=== PATIENT | male | born 1990 | race Two or more races ===

== ENCOUNTER 2025-02-07 07:35 | Day surgery (SDC) | payer MEDICAID, SELFPAY ==
[2025-02-02 12:11] VITALS: BMI 30.5
[2025-02-02 12:38] LABS: Collection Type, Urine Clean Catch; Squamous Epithelial Cell,Urine 0 /hpf (0-5)
[2025-02-02 13:24] LABS: Basophils # (Auto) 0.0 Thou/mm3 (0.0-0.2); Basophils % (Auto) 0 % (0-2.5); Eosinophils # (Auto) 0.1 Thou/mm3 (0.0-0.5); Eosinophils % (Auto) 1 % (0-10); Hematocrit 41.4 % (41.0-53.0); Hemoglobin 14.5 g/dL (13.5-16.0); Immature Granulocytes Auto 0.03 Thou/mm3 (0.00-0.00); Lymphocytes # (Auto) 3.6 Thou/mm3 (1.0-4.8); Lymphocytes % (Auto) 52 % (10-50); Mean Corpuscular HGB Conc 35.0 g/dl (31.0-37.0); Mean Corpuscular Hemoglobin 29.4 pg (25.0-35.0); Mean Corpuscular Volume 84 fL (80-100); Monocytes # (Auto) 0.7 Thou/mm3 (0.0-0.8); Monocytes % (Auto) 10 % (0-12); Neutrophils # (Auto) 2.6 Thou/mm3 (1.8-7.7); Neutrophils % (Auto) 37 % (37-80); Nucleated Red Blood Cell # 0.00 Thou/mm3 (0.00-0.00); Nucleated Red Blood Cell % 0 /100 WBC (0); Platelet Count 180 Thou/mm3 (140-440); RDW Standard Deviation 42.7 fL (35.1-43.9); Red Blood Count 4.93 Miln/mm3 (4.50-5.90); White Blood Count 7.1 Thou/mm3 (3.8-10.6)
[2025-02-02 13:27] LABS: Bacteria,Urine Rare; Bilirubin,Urine Negative (Negative); Blood,Urine Negative (Negative); Clarity,Urine Clear (Clear/Hazy); Color,Urine Lt-Yellow (Lt Yel-Yel); Glucose, Urine Negative (Negative); Ketones,Urine Negative (Negative); Leukocyte Esterase,Urine Negative (Negative); Nitrite,Urine Negative (Negative); PH,Urine 5.5 (5.0-7.0); Protein,Urine Negative (Neg - Trace); RBC,Urine 2 /hpf (0-3); Specific Gravity,Urine 1.026 (1.001-1.035); Urobilinogen,Urine Negative mg/dL (0.0-1.0); WBC,Urine < 1 /hpf (0-5)
[2025-02-02 13:31] LABS: Anion Gap 9 (7-16); BUN/Creatinine Ratio 21 Ratio (12-20); Blood Urea Nitrogen 23 mg/dL (9-23); Calcium 9.8 mg/dL (8.3-10.6); Carbon Dioxide 30.3 mMol/L (20.0-31.0); Chloride 105 mMol/L (98-107); Creatinine (Component) 1.1 mg/dL (0.6-1.3); Estimated Creatinine Clearance 92.2 mL/min (>60); Glucose 79 mg/dL (74-106); Osmolality,Calculated 289 (275-295); Potassium 4.5 mMol/L (3.4-5.1); Sodium 144 mMol/L (136-145); eGFR > 60 See Note
--- NOTE | 2025-02-02 14:49 | ESHP_ITS ---
RE: ELENI MORFIN : 1990 DATE OF ADMISSION: 02/02/2025 HISTORY OF PRESENT ILLNESS: A 34-year-old gentleman desiring bilateral vasectomy for family planning. He has 2 children. ALLERGIES: NONE KNOWN. PAST SURGICAL HISTORY: None. PAST MEDICAL HISTORY: No history of diabetes mellitus or no history of hypertension. MEDICATIONS: None. PHYSICAL EXAMINATION: HEENT: Normal. Neck: Supple. Lungs: Clear. Cardiovascular: Heart sounds are normal. Abdomen: Soft without any organomegaly. No guarding. No rigidity. Extremities: Normal. : Phallus is normal. Testes are down in the scrotum. IMPRESSION: Patient desiring bilateral vasectomy for family planning. PLAN: Planned procedure, risks and complications have been discussed with the patient. Patient has understood them and agreed to proceed. DT: 14:24:20 TT: 14:48:00 Ref: [id number] - TID: [id number]
--- NOTE | 2025-02-06 15:51 | SUR.PREOP ---
Pt notified to come in at 0730 tomorrow.
[2025-02-07] VITALS (10 sets, daily range): BP systolic 102–126; BP diastolic 68–86; PULSE 56–67; RESP 16–20; TEMP 36.6–36.8; O2SAT 97–100; BMI 30.6
--- NOTE | 2025-02-07 07:48 | CHAP ---
Visited with patient giving encouragement, comfort and prayer prior to the procedure.
--- NOTE | 2025-02-07 10:19 | SUR.PHASEI ---
1004: Pt received in [facility] via [place]. Report from Mando ADAMSON and ERP PROGRAMMER. Pt moderately sedated. Responds to verbal stimuli with eye opening then drifts back to sleep. Resp even, unlabored. VS stable. Dressing to scrotal area dry, clean, intact. Ice pack applied to scrotum per order.
--- NOTE | 2025-02-07 10:28 | SUR.PHASEI ---
1027: Pt resting with no complaints voiced. Resp even, unlabored. VS stable. Dressing remains dry, clean, intact.
--- NOTE | 2025-02-07 11:04 | SUR.PHASEII ---
1036: Pt resting with no complaints voiced. Resp even, unlabored. VS stable. Dressing remains dry, clean, intact. Denies pain. 1105: Pt more awake, alert. VS stable. Denies pain. Sitting up tolerating po fluids with no difficulty swallowing and no n/v. Discharge teaching started.
--- NOTE | 2025-02-07 11:12 | ESOP_ITS ---
RE: ELENI MORFIN : 1990 DATE OF OPERATION: 02/07/2025 PREOPERATIVE DIAGNOSIS: Patient desiring bilateral vasectomy. POSTOPERATIVE DIAGNOSIS: Patient desiring bilateral vasectomy. PROCEDURE PERFORMED: Bilateral vasectomy. ANESTHESIA: General by Dr. Ocampo. INDICATION: Patient is a 34 year old gentleman desiring bilateral vasectomy for family planning. Planned procedure risks and complications have been discussed with the patient. Patient understood them and agreed to proceed. DESCRIPTION OF PROCEDURE: After the patient was brought to the operating table under adequate general anesthesia and supine position, parts were prepped and draped in the usual fashion. Right vas deferens was made subcutaneous. A small transverse incision was then made over the vas deferens. Skin and subcutaneous tissues were incised. A small segment of the vas deferens was isolated and two clamps were placed. A segment between the clamps was excised. The ends of the vas deferens were fulgurated and ligated using 3-0 chromic catgut sutures. Complete hemostasis was obtained. Skin wound was closed with interrupted sutures of 3-0 chromic catgut. In a similar fashion, the left sided vasectomy was also done. Local anesthetic was injected at the site of the skin. Sterile dressing was then applied. Patient was then transferred to the recovery room in a satisfactory condition having tolerated the entire procedure well. Sponge count and needle count at the end of the procedure was found to be correct. Estimated blood loss was minimal. DT: 10::53 TT: 11:10:00 Ref: [id number] - TID: [id number]
--- NOTE | 2025-02-07 11:53 | SUR.PHASEII ---
1130: Pt fully awake, oriented x3. VS stable. Dressing dry, clean, intact. Denies pain. Pt assisted to restroom. Ambulation steady. Pt and mother stated understanding of discharge instructions. Pt also instructed to milk pickup driver his prescription at [facility] in [place]. Pt discharged from [facility] in stable condition.
== END 2025-02-07 11:30 | disposition home or self-care (01) ==
PROVIDERS: PCP Physician Assistant; Referring Provider Surgery; Visit Provider Surgery
PROC: (CPT 55250; principal; 2025-02-07 09:15)
DX: Z30.2 Encounter for sterilization (principal)
CPT/HCPCS: 55250; 36415; 80048; 81001; 85025; A4649; J0690; J1100; J2250; J2405; J2704; J2765; J3010; J3490; L8330; A9270